=== PATIENT | male | born 1960 | race Caucasian/White ===

== ENCOUNTER 2020-02-08 07:32 | Day surgery (SDC) | payer SELFPAY ==
[~2020-02-08] VITALS: Ht 195.6 cm; Wt 87.8 kg
[~2020-02-08 07:32] MED LIST: [UNRECOGNIZED DRUG - MIXTURE] PO; [UNRECOGNIZED DRUG - OTHER] PO
[2020-02-08] MEDS ORDERED: LACTATED RINGERS 1,000 ML IV SCH (07:50)
[2020-02-08] MEDS ORDERED: CHLORHEXIDINE 15 ML UDC MM ONE (08:00)
[2020-02-08] MEDS ORDERED: LIDOCAINE-MPF 1%, 2ML INFIL ONE (08:00)
[2020-02-08] MEDS ORDERED: EPINEPHRINE 1 MG/ML, 1ML ONE (09:10)
[2020-02-08] MEDS ORDERED: BUPIVACAINE/PF 0.5% ONE (09:10)
[2020-02-08] MEDS ORDERED: PROPOFOL 10 MG/ML, 20ML ONE (09:13)
[2020-02-08] MEDS ORDERED: FENTANYL PF 100 MCG/2ML ONE (09:13)
[2020-02-08] MEDS ORDERED: LIDOCAINE-MPF 2% ,5ML ONE (09:14)
[2020-02-08] MEDS ORDERED: DEXAMETHASONE 4 MG/ML, 1ML ONE ×3 (09:50)
[2020-02-08] MEDS ORDERED: CEFAZOLIN 1,000 MG ONE ×2 (09:51)
[2020-02-08] MEDS ORDERED: KETOROLAC 30 MG/1 ML ONE (09:51)
[2020-02-08] MEDS ORDERED: GLYCOPYRROLATE 0.2MG/1ML, 5ML ONE (09:53)
[2020-02-08] MEDS ORDERED: OXYcodone 5 MG/5 ML ORAL.SOL UDC PO PRN (10:00)
[2020-02-08] MEDS ORDERED: FENTANYL PF 100 MCG/2ML IV PRN (10:00)
[2020-02-08] MEDS ORDERED: PROMETHAZINE 25 MG/ML, 1ML IVPush PRN (10:00)
[2020-02-08] MEDS ORDERED: ONDANSETRON 2MG/ML, 2ML IVPush PRN (10:00)
[2020-02-08] MEDS ORDERED: ONDANSETRON 2MG/ML, 2ML ONE (15:12)
== END 2020-02-08 13:20 | disposition home or self-care (01) ==
LOC: OUT 07:32
PROVIDERS: ATTEND Surgery
DX: K40.90 Unilateral inguinal hernia, without obstruction or gangrene, not specified as recurrent (principal); F17.290 Nicotine dependence, other tobacco product, uncomplicated; Z79.899 Other long term (current) drug therapy; Z53.29 Procedure and treatment not carried out because of patient's decision for other reasons
CPT/HCPCS: 36415; 49505; 87635; 93005; C1781; J0171; J0690; J1100; J1885; J2405; J2704; J3010; J7120